=== PATIENT | female | born 1995 | race Caucasian/White ===

== ENCOUNTER → 2017-08-15 | Outpatient (CLI) | payer BC ==
--- NOTE | 2017-08-15 12:46 | DIAGNOSTIC IMAGING REPORT ---
LEFT TIBIA/FIBULA 2 VIEWS CLINICAL HISTORY: LEFT [facility] PAIN COMPARISON STUDY: None. FINDINGS: Focal cortical thickening within the anterior mid shaft of the left tibia. The area of cortical thickening measures 8 cm in length. No acute fracture or dislocation. The fibula appears intact. Soft tissues are unremarkable. No radiopaque foreign bodies. IMPRESSION: Focal cortical thickening within the anterior mid shaft of the left tibia. This favors a healing/healed stress related changes. MRI can be used for confirmation. No definite acute fracture identified. Electronically signed by: Thomas Matias M.D. 08/15/2017 12:45 PM Dictated Date/Time: 08/15/2017 12:42 PM
== END | disposition home or self-care (01) ==
LOC: C.RDSM 11:05
PROVIDERS: ATTEND Family Medicine
DX: M79.662 Pain in left lower leg (principal)